=== PATIENT | male | born 1970 | race Caucasian/White ===

== ENCOUNTER 2017-02-27 21:14 | Emergency (ER) | payer OTHER ==
[~2017-02-27] VITALS: Ht 167.6 cm; Wt 120.2 kg
[2017-02-27] MEDS ORDERED: SYNTHROID175 MCG PO (21:20)
[2017-02-27] MEDS ORDERED: HYDROCODONE-AP1 EAC6 PO (22:37)
[2017-02-27 22:55] VITALS: BP 160/100
== END 2017-02-27 22:56 | disposition home or self-care (01) ==
LOC: ER 21:14
DX: M79.631 Pain in right forearm (principal); E03.9 Hypothyroidism, unspecified; F10.99 Alcohol use, unspecified with unspecified alcohol-induced disorder; Z98.890 Other specified postprocedural states